=== PATIENT | male | born 2000 | race Caucasian/White ===

== ENCOUNTER → 2022-05-02 08:47 | Outpatient (CLI) | payer OTHER, SELFPAY ==
--- NOTE | ~2022-05-02 | XR_ITS ---
EXAMINATION: XR_CERV2-3V_CR DATE: 05/02/2022 09:03 INDICATION: Neck pain. Bilateral arm numbness. TECHNIQUE: 4 views of cervical spine were obtained. COMPARISON: None. FINDINGS: There is 10 degrees levoscoliosis of cervical spine. Vertebral body heights and interverteb ral disc heights are normal. The facet joints are unremarkable. No central canal stenosis or preverte bral soft tissue swelling. IMPRESSION: 1. Cervical levoscoliosis. Reviewed, dictated and finalized at location B. IMPRESSION: 1. Cervical levoscoliosis.
== END ==
PROVIDERS: PCP Family Medicine; Visit Provider Nurse Practitioner Family
DX: M54.2 Cervicalgia (principal); R20.0 Anesthesia of skin; R20.2 Paresthesia of skin
CPT/HCPCS: 72040

== ENCOUNTER → 2022-05-22 09:25 | Outpatient (CLI) | payer OTHER, SELFPAY ==
--- NOTE | ~2022-05-22 | XR_ITS ---
XR scoliosis survey DATE: 05/22/2022 09:43 INDICATION: Scoliosis survey. Anesthesia at the skin. TECHNIQUE: Standing AP and lateral views COMPARISON: None FINDINGS: There is approximately 10 degrees levoscoliosis measured from C2 to T4. There is approximately 10 deg gurmeet dextroscoliosis of the thoracic spine measured from T4 to T10. There is approximately 12 degrees levoscoliosis measured from T10 to L2. There is minimal anterolisthesis at C4-5 and C5-6. No fracture or dislocation or bone destruction is noted. The thoracic and lumbar pedicles are intact. The sacral iliac joints appear normal. IMPRESSION: Mild scoliosis Reviewed, dictated and finalized at Location A. Reviewed, dictated and finalized at location A. IMPRESSION: Mild scoliosis
== END ==
PROVIDERS: PCP Family Medicine; Visit Provider Nurse Practitioner Family
DX: R20.0 Anesthesia of skin (principal); R20.2 Paresthesia of skin; M54.2 Cervicalgia; M41.9 Scoliosis, unspecified
CPT/HCPCS: 72082

== ENCOUNTER → 2023-04-25 10:39 | Outpatient (CLI) | payer OTHER, SELFPAY ==
--- NOTE | ~2023-04-25 | XR_ITS ---
EXAMINATION: XR hand RT 2V INDICATION: Right hand pain TECHNIQUE: Two views of the right hand are obtained. COMPARISON: None available FINDINGS: No fracture, dislocation, or subluxation. The bones, soft tissues, and joint spaces are nor mal. IMPRESSION: 1. No acute osseous abnormality. Reviewed, dictated and finalized at location F.
== END ==
PROVIDERS: PCP Nurse Practitioner Family; Visit Provider Nurse Practitioner Family
DX: M79.641 Pain in right hand (principal)
CPT/HCPCS: 73120

== ENCOUNTER 2023-12-14 10:20 | Outpatient (CLI) | payer OTHER, SELFPAY ==
--- NOTE | ~2023-12-14 | XR_ITS ---
EXAMINATION: XR thoracic spine 2V DATE: 12/14/2023 10:48 INDICATION: Scoliosis, unspecified. TECHNIQUE: 3 views of thoracic spine were obtained. COMPARISON: Radiographs 05/22/2022 FINDINGS: There is 15 degrees dextroscoliosis from T3 to T10 by the Triana method. Vertebral body heigh ts are normal. Intervertebral disc heights are normal. The facet joints are unremarkable. IMPRESSION: 1. Thoracic dextroscoliosis, worsened from 05/22/2022. Reviewed, dictated and finalized at location E.
--- NOTE | ~2023-12-14 | XR_ITS ---
EXAMINATION: XR_CERV2-3V_CR DATE: 12/14/2023 10:48 INDICATION: Scoliosis, unspecified. TECHNIQUE: 4 views of the cervical spine were obtained. COMPARISON: Cervical spine radiographs 05/02/2022 FINDINGS: There is 12 degrees levoscoliosis of the cervicothoracic spine. Vertebral body heights and intervertebral disc heights are normal. The facet joints are unremarkable. No central canal stenosis or prevertebral soft tissue swelling. IMPRESSION: 1. Cervicothoracic levoscoliosis. Reviewed, dictated and finalized at location E.
--- NOTE | ~2023-12-14 | XR_ITS ---
EXAMINATION: XR lumbar spine 2-3V DATE: 12/14/2023 10:48 INDICATION: Scoliosis, unspecified. TECHNIQUE: 3 views of lumbar spine were obtained. COMPARISON: None. FINDINGS: Bone alignment is normal. Vertebral body heights are normal. Intervertebral disc heights ar e normal. The facet joints are unremarkable. IMPRESSION: 1. Normal lumbar spine. Reviewed, dictated and finalized at location E. IMPRESSION: 1. Normal lumbar spine.
== END 2023-12-14 10:21 | disposition home or self-care (01) ==
LOC: ANHIMG 10:23
PROVIDERS: PCP Family Medicine; Visit Provider Nurse Practitioner Adult Health
DX: M41.84 Other forms of scoliosis, thoracic region (principal); M41.83 Other forms of scoliosis, cervicothoracic region
CPT/HCPCS: 72040; 72070; 72100